=== PATIENT | male | born 1950 | race Caucasian/White ===

== ENCOUNTER 2016-10-01 13:18 | Observation (INO) | payer OTHER ==
[2016-10-01 13:27] VITALS: BMI 28.1
[2016-10-01] MEDS ORDERED: ASPIRIN 81 MG CHEWABLE TABLETS PO ONE (13:45)
--- NOTE | 2016-10-01 13:45 | PDOC ---
[id number] Filed: 10/01/16 16:25> <Chau Swan - Last Filed: 10/04/16 19:40> - General Chief Complaint: Chest Pain Stated Complaint: CHEST PAIN Time Seen by Provider: 10/01/16 13:34 - History of Present Illness Initial Comments: 10/01/16 14:36 The patient is a 66 year old male with a past medical history of CAD s/p 5 cardiac stents( last in 2011), HTN, HLD, presents to the emergency department with a complaint of chest pain this morning. Patient was a rest when he spontaneously felt <min of of sharp left sided chest pain. Patient has had chest pains in the past and states the pain was similar however this pain was more severe than previous episodes. Last episode was " a while ago". The pain was non radiating, associated shortness of breath and diaphoresis. Patient's pain resolved on its own and has not had any recurrence of pain since. Denies decrease in exercise tolerance, denies shortness of breath on exertion. Deneis palpitations, lightheadedness. Denies nausea, vomiting. Denies vision changes. Denies numbness tingling in his extremities. Patient reports a negative stress test 4 months ago. Last time the patient saw his rouge presser was 2 months ago for routine check up and reports being well. Pt does endorse having a similar chest pain in the past for a stent Sales Record Clerk: Dr. Jacquie castellanos [phone]+ (Bunny Bang) Past History <Bunny Bang - Last Filed: 10/01/16 16:25> - Past Medical History Cardiac Disorders: Yes (CAD; "faulty valve") HTN: Yes Hypercholesterolemia: Yes - Surgical History Cardiac Surgery: Yes (x5 (', , , january, february)) - Immunization History Td Vaccination: Yes Immunization Up to Date: Yes - Psycho/Social/Smoking Cessation Hx Anxiety: No Suicidal Ideation: No Smoking Status: No Smoking History: Never smoked Years of Tobacco Use: 0 Have you smoked in the past 12 months: No Number of Cigarettes Smoked Daily: 0 Cigars Per Day: 0 Hx Alcohol Use: No Drug/Substance Use Hx: No Substance Use Type: None Hx Substance Use Treatment: No <Chau Swan - Last Filed: 10/04/16 19:40> - Past Medical History Allergies/Adverse Reactions: Allergies Allergy/AdvReac Type Severity Reaction Status Date / Time No Known Allergies Allergy Verified 10/01/16 13:23 Home Medications: Ambulatory Orders Atorvastatin Ca [Lipitor] 80 mg PO HS 06/10/12 Clopidogrel Bisulfate [Plavix -] 75 mg PO DAILY 06/10/12 Aspirin [ASA -] 81 mg PO DAILY 07/08/14 Metoprolol Succinate [Toprol Xl] 0 mg PO DAILY 10/01/16 Review of Systems - Review of Systems Able to Perform ROS?: Yes <Bunny Bang - Last Filed: 10/01/16 16:25> <Chau Swan - Last Filed: 10/04/16 19:40> - Review of Systems Comments:: 10/01/16 14:37 CONSTITUTIONAL: Reports: Diaphoresis, No reported: Fever, Chills, Generalized Weakness, Malaise, Loss of Appetite HEENT: No reported: Rhinorrhea, Nasal Congestion, Throat Pain, Throat Swelling, Difficulty Swallowing, Mouth Swelling, Ear Pain, Eye Pain, Visual Changes CARDIOVASCULAR: Reprots: Chest Pain, No reported: Syncope, Irregular Heart Rate, Peripheral Edema, Palpitations, Lightheadedness, RESPIRATORY: Reports: Shortness of breath No reported: Cough, SOB with Exertion, Orthopnea, Wheezing, Stridor, Hemoptysis GASTROINTESTINAL: No reported: Abdominal pain, Abdominal Distension, Nausea, Vomiting, Diarrhea, Constipation, Melena, Hematochezia GENITOURINARY: No reported: Dysuria, Frequency, Urgency, Hesitancy, Flank Pain, Genital Pain MUSCULOSKELETAL: No reported: Myalgia, Arthralgia, Joint Swelling, Back pain, Neck Pain SKIN: No reported: Rash, Itching, Pallor HEMEATOLOGIC/IMMUNOLOGIC: No reported: Easy Bleeding, Easy Bruising, Lymphadenopathy, Frequent infections ENDOCRINE: No reported: Unexplained Weight Gain, Unexplained Weight Loss, Heat Intolerance , Cold Intolerance NEUROLOGIC: No reported: Headache, Focal Weakness, Paresthesias, Vertigo, Lightheadedness, Unsteady Gait, Seizure, Mental Status Changes, Incontinence PSYCHIATRIC: No reported: Anxiety, Depression (Bunny Bang) *Physical Exam <Bunny Bang - Last Filed: 10/01/16 16:25> <Sosa,Chau - Last Filed: 10/04/16 19:40> - Vital Signs Last Vital Signs Temp Pulse Resp BP Pulse Ox 97.6 F 73 20 118/70 95 10/02/16 13:25 10/02/16 13:25 10/02/16 13:25 10/02/16 13:25 10/02/16 07:55 - Physical Exam Comments: 10/01/16 14:37 GENERAL: The patient is awake, alert, and fully oriented, Nontoxic - in no acute distress. HEAD: Normocephalic, atraumatic. EYES: extraocular movements intact, sclera anicteric, conjunctiva clear. ENT: Normal voice, Moist mucous membranes. NECK: Normal range of motion, supple LUNGS: Breath sounds equal, clear to auscultation bilaterally. No wheezes, no rhonchi, no rales. HEART: Regular rate and rhythm, without murmur, rub or gallop. ABDOMEN: Soft, nontender, normoactive bowel sounds. No guarding, no rebound.No CVA tenderness EXTREMITIES: Normal range of motion, no edema. No clubbing or cyanosis. No cords , erythema, or tenderness. NEUROLOGICAL: No facial assymetry, Normal speech, PSYCH: Normal mood, normal affect. SKIN: Warm, Dry, normal turgor, (Bunny Bang) Heart Score/ECG Review - History History: Slightly suspicious - Electrocardiogram EKG: Normal - Age Age: >/= 65 - Risk Factors Risk Factors Heart Score: Yes Hx Hypercholesterolemia, Yes Hx Hypertension, Yes Hx Obesity Based on the list above the patient has:: >/=3 risk factors or Hx atherosclerotic disease - Troponin Troponin: </= normal limit - Score Heart Score - Total: 4 <Sosa,Chau - Last Filed: 10/04/16 19:40> ED Treatment Course - LABORATORY CBC & Chemistry Diagram: 10/01/16 13:47 10/01/16 13:47 <Bunny Bang - Last Filed: 10/01/16 16:25> - LABORATORY CBC & Chemistry Diagram: 10/02/16 05:35 10/02/16 05:35 <Sosa,Chau - Last Filed: 10/04/16 19:40> - ADDITIONAL ORDERS Additional order review: 10/01/16 13:47 RBC 4.29 MCV 95.2 MCHC 33.6 RDW 12.1 MPV 7.9 Neutrophils % 63.0 Lymphocytes % 21.0 Monocytes % 7.9 Eosinophils % 7.1 H Basophils % 1.0 (Bunny Bang) - RADIOLOGY Radiology Studies Ordered: Category Date Time Status CHEST PA & LAT [RAD] Stat Radiology 10/01/16 13:45 Completed 10/01/16 14:37 CHEST X RAY Impression: No active pulmonary disease Reported by Calvin Correia (Bunny Bang) - Medications Given in the ED: ED Medications Discontinued Medications Generic Name Dose Route Start Last Admin Trade Name Freq PRN Reason Stop Dose Admin Aspirin 162 mg 10/01/16 13:45 10/01/16 13:57 Asa - PO 10/01/16 13:46 162 mg ONCE ONE Administration Aspirin 81 mg 10/02/16 10:00 10/02/16 09:12 Asa - PO 81 mg DAILY JAIMIE Administration Atorvastatin Calcium 80 mg 10/01/16 22:00 10/01/16 22:16 Lipitor - PO 80 mg HS JAIMIE Administration Clopidogrel Bisulfate 75 mg 10/02/16 10:00 10/02/16 09:07 Plavix - PO 75 mg DAILY JAIMIE Administration Docusate Sodium 100 mg 10/01/16 22:00 10/02/16 09:07 Colace - PO 100 mg BID JAIMIE Administration Metoprolol Succinate 25 mg 10/02/16 10:00 10/02/16 09:07 Toprol Xl - PO 25 mg DAILY JAIMIE Administration Medical Decision Making <Bunny Bang - Last Filed: 10/01/16 16:25> <Chau Swan - Last Filed: 10/04/16 19:40> - Medical Decision Making 10/01/16 15:01 66y M hx of htn, hl, obesity, CAD s/p 5 stents presents with chest pain - pt state it was a sharp chest pain lasting for a brief time associated with sob, diaphoresis when he was at rest and then resolved w/o n/v, numbne/stingling/ weakness. pt endorses feeling similar pain in the past when he had a stent - ekg unremarkable, trop neg x 1 pts HAART score +4 will observe for further risk stratefication A portion of this note was documented by scribe services under my direction. I have reviewed the details of the note, within reason, and agree with the documentation with the following case summary and management plan written by me 10/01/16 16:01 case dw Karen from hospitalist [facility] with tele observation will admit under dr. Tesfaye service. Case discussed in detail with admitting physician including history, physical exam and ancillary studies. Admitting physician has assumed care for the patient, will follow all pending diagnostics and will complete the evaluation and treatment. (Chau Swan) *DC/Admit/Observation/Transfer <Bunny Bang - Last Filed: 10/01/16 16:25> - Discharge Dispostion Admit: Yes <Chau Swan - Last Filed: 10/04/16 19:40> Diagnosis at time of Disposition: Chest pain Qualifiers: Chest pain type: unspecified Qualified Code(s): R07.9 - Chest pain, unspecified - Discharge Dispostion Disposition: HOME Condition at time of disposition: Stable - Attestations Scribe Attestion: 10/01/16 14:37 Documentation prepared by Bunny Bang, acting as medical practice administrator for Chau Swan MD (Bunny Bang)
[2016-10-01] MEDS ORDERED: ASPIRIN 81 MG CHEWABLE TABLETS ONE (13:53)
[2016-10-01 14:07] LABS: EOSINOPHIL 7.1 % (0-4.5); MCHC 33.6 g/dl (32.0-35.9); MEAN CELL VOLUME 95.2 fl (80-96); MEAN PLT VOLUME 7.9 fl (7.5-11.1); PLATELET COUNT 300 K/MM3 (134-434); RDW 12.1 % (11.9-15.9); WHITE BLOOD COUNT 8.8 K/mm3 (4.0-10.0)
[2016-10-01 14:23] LABS: INR 1.17 (0.82-1.09); PROTHROMBIN TIME (PATIENT) 12.9 SEC (9.98-11.88)
--- NOTE | 2016-10-01 14:34 | EKG ---
Test Reason : Blood Pressure : / mmHG Vent. Rate : 065 BPM Atrial Rate : 065 BPM P-R Int : 176 ms QRS Dur : 084 ms QT Int : 414 ms P-R-T Axes : 038 002 033 degrees QTc Int : 430 ms NORMAL SINUS RHYTHM NORMAL ECG WHEN COMPARED WITH ECG OF 17-AUG-2015 01:24, NO SIGNIFICANT CHANGE WAS FOUND Confirmed by JUAN BERNABE MD ([id number]) on 10/01/2016 2:33:51 PM Referred By: NM Confirmed By:JUAN BERNABE MD
[2016-10-01 14:42] LABS: ANION GAP 9 (8-16); BILIRUBIN,TOTAL 0.9 mg/dL (0.2-1.0); CALCIUM 9.5 mg/dL (8.5-10.1); CO2 29 mmol/L (21-32); CREATININE 0.9 mg/dL (0.7-1.3); GLUCOSE,RANDOM 84 mg/dL (74-106); SGOT/AST 23 U/L (15-37); SGPT/ALT 30 U/L (12-78); TOT PROT 7.4 g/dl (6.4-8.2)
[2016-10-01 14:44] LABS: ALK PHOS 88 U/L (45-117); TROPONIN I < 0.02 ng/ml (0.00-0.05)
[2016-10-01] MEDS ORDERED: ACETAMINOPHEN 325 MG TABLET (FP) PO PRN (15:48)
[2016-10-01] MEDS ORDERED: ONDANSETRON 4 MG/2 ML VIAL IVPB PRN (15:48)
--- NOTE | 2016-10-01 16:34 | HP ---
CHIEF COMPLAINT: Chest Pain PCP: Dr. Baker ([facility] out of [facility]; [phone]) HISTORY OF PRESENT ILLNESS: Mr. Lerner is a 66 y/o male with a PMH significant for CAD with stenting (5x, last in 2011), HTN, dyslipidemia, who presented to the ED today after experiencing left sided chest pain. The pt. states that the pain started while he was standing in the kitchen this morning. The pain was sharp like someone was stabbing him. The pain did not radiate and it dissipated after several seconds. He states that this pain was not like his typical chest pain as it was located more laterally vs. his usual substernal chest pain. He also states that he felt short of breath with this episode and that the chest pain worsened with deep breaths. Denies leg pain, family history of hypercoaguability, or prior DVT in the past. He presented to the ED after the episode passed. Denies palpitations, weakness, dizziness, N/V/D. ER course was notable for: (1) Negative 1st troponin (2) EKG: Sinus arrhythmia with a normal rate; No ischemic changes (3) No new events of chest pain Recent Travel: Denies PAST MEDICAL HISTORY: Hypertension Dyslipidemia CAD with stenting PAST SURGICAL HISTORY: None Social History: Smoking: Never Alcohol: Socially (1-2 drinks per week) Drugs: Never Family History: Allergies No Known Allergies Allergy (Verified 10/01/16 13:23) HOME MEDICATIONS: Home Medications Medication Instructions Recorded Atorvastatin Ca [Lipitor] 80 mg PO HS 06/10/12 Clopidogrel Bisulfate [Plavix] 75 mg PO DAILY 06/10/12 Aspirin [ASA -] 81 mg PO DAILY 07/08/14 REVIEW OF SYSTEMS CONSTITUTIONAL: Absent: fever, chills, diaphoresis, generalized weakness, malaise, loss of appetite, weight change HEENT: Absent: rhinorrhea, nasal congestion, throat pain, throat swelling, difficulty swallowing, mouth swelling, ear pain, eye pain, visual changes CARDIOVASCULAR: Present: Chest pain Absent: syncope, palpitations, irregular heart rate, lightheadedness, peripheral edema RESPIRATORY: Present: Shortness of breath Absent: cough, dyspnea with exertion, orthopnea, wheezing, stridor, hemoptysis GASTROINTESTINAL: Absent: abdominal pain, abdominal distension, nausea, vomiting, diarrhea, constipation, melena, hematochezia GENITOURINARY: Absent: dysuria, frequency, urgency, hesitancy, hematuria, flank pain, genital pain MUSCULOSKELETAL: Absent: myalgia, arthralgia, joint swelling, back pain, neck pain SKIN: Absent: rash, itching, pallor HEMATOLOGIC/IMMUNOLOGIC: Absent: easy bleeding, easy bruising, lymphadenopathy, frequent infections ENDOCRINE: Absent: unexplained weight gain, unexplained weight loss, heat intolerance, cold intolerance NEUROLOGIC: Absent: headache, focal weakness or paresthesias, dizziness, unsteady gait, seizure, mental status changes, bladder or bowel incontinence PSYCHIATRIC: Absent: anxiety, depression, suicidal or homicidal ideation, hallucinations. PHYSICAL EXAMINATION Vital Signs - 24 hr 10/01/16 10/01/16 10/01/16 13:23 13:36 16:00 Temperature 97.9 F 98 F Pulse Rate 66 66 Pulse Rate [ 66 Left Radial] Respiratory 19 18 Rate Blood Pressure 126/86 Blood Pressure 124/77 [Left Arm] O2 Sat by Pulse 99 99 98 Oximetry (%) 10/01/16 16:04 Temperature 98.3 F Pulse Rate Pulse Rate [ 61 Left Radial] Respiratory 20 Rate Blood Pressure Blood Pressure 130/70 [Left Arm] O2 Sat by Pulse 98 Oximetry (%) GENERAL: Awake, alert, and fully oriented to person, place, and time, in no acute distress laying in bed, not using accessory muscles to breathe. HEAD: Normal with no signs of trauma. EYES: Pupils equal, round and reactive to light, extraocular movements intact, sclera anicteric, conjunctiva clear. No lid lag. EARS, NOSE, THROAT: Ears normal, nares patent, oropharynx clear without exudates. Moist mucous membranes. NECK: Normal range of motion, supple without lymphadenopathy, JVD, or masses. LUNGS: Breath sounds equal, clear to auscultation bilaterally. No wheezes, and no crackles. No accessory muscle use. HEART: Regular rate and rhythm, normal S1 and S2 without murmur, rub or gallop. ABDOMEN: Soft, nontender, not distended, normoactive bowel sounds, no guarding, no rebound, no masses. No hepatomegaly or splenomegaly. MUSCULOSKELETAL: Normal range of motion at all joints. No bony deformities or tenderness. No CVA tenderness. UPPER EXTREMITIES: 2+ pulses, warm, well-perfused. No cyanosis. No clubbing. Cap refill <2 seconds. No peripheral edema. LOWER EXTREMITIES: 2+ pulses, warm, well-perfused. No calf tenderness. No peripheral edema. NEUROLOGICAL: Cranial nerves II-XII intact. Normal speech. Normal gait. PSYCHIATRIC: Cooperative. Good eye contact. Appropriate mood and affect. SKIN: Warm, dry, normal turgor, no rashes or lesions noted. Laboratory Results - last 24 hr 10/01/16 10/01/16 10/01/16 13:47 13:47 13:47 WBC 8.8 RBC 4.29 Hgb 13.7 Hct 40.8 MCV 95.2 MCHC 33.6 RDW 12.1 Plt Count 300 MPV 7.9 Neutrophils % 63.0 Lymphocytes % 21.0 Monocytes % 7.9 Eosinophils % 7.1 H Basophils % 1.0 INR 1.17 H Sodium 142 Potassium 4.5 Chloride 104 Carbon Dioxide 29 Anion Gap 9 BUN 13 Creatinine 0.9 Creat Clearance w eGFR > 60 Random Glucose 84 Calcium 9.5 Magnesium 2.0 Total Bilirubin 0.9 D AST 23 D ALT 30 D Alkaline Phosphatase 88 Creatine Kinase 121 Troponin I < 0.02 Total Protein 7.4 Albumin 4.0 ASSESSMENT/PLAN: Problem List - Problem (1) Chest pain Assessment/Plan: Given that the pt. reports this chest pain is different than his past episodes and a HEART score of 4, will place in observation to monitor for events over night. Pt. states that he had a stress echo done in the past 6 months and was normal at that time. 1. First troponin negative; will order serial troponins. 2. Routine basic labs to monitor electrolytes 3. Will reach out to pt. precision lens centerer and edger Dr. Baker (left message 10/01/16 16:00) to obtain old records; depending on last stress test date will consider having another test done. 4. Continuous cardiac monitoring 5. Place in observation Code(s): R07.9 - CHEST PAIN, UNSPECIFIED Qualifiers: Chest pain type: unspecified Qualified Code(s): R07.9 - Chest pain, unspecified (2) HTN (hypertension) Assessment/Plan: Slightly above goal blood pressure; monitor Continue metoprolol; pt. reports not knowing his home dose. Will give 25mg daily Code(s): I10 - ESSENTIAL (PRIMARY) HYPERTENSION (3) Dyslipidemia Assessment/Plan: Continue atorvastatin Will draw lipid panel Low fat/sodium diet Code(s): E78.5 - HYPERLIPIDEMIA, UNSPECIFIED (4) DVT prophylaxis Assessment/Plan: OOB and walking. Low risk for DVT as pt is in obs. Code(s): UTR9222 - Visit type - Emergency Visit Emergency Visit: Yes Care time: The patient presented to the Emergency Department on the above date and was hospitalized for further evaluation of their emergent condition. - New Patient This patient is new to me today: Yes Date on this admission: 10/01/16 - Critical Care Critical Care patient: No
[2016-10-01 21:33] LABS: TROPONIN I < 0.02 ng/ml (0.00-0.05)
[2016-10-01] MEDS ORDERED: ATORVASTATIN CA 80 MG TABLET (FP) PO SCH (22:00)
[2016-10-01] MEDS: DOCUSATE SODIUM 100 MG CAPSULE (FP) PO SCH (22:16)
[2016-10-02 07:01] LABS: BASOPHIL 0.5 % (0-2.0); EOSINOPHIL 6.2 % (0-4.5); MCH 32.1 pg (25.7-33.7); MEAN CELL VOLUME 94.4 fl (80-96); NEUTROPHILS 49.9 % (42.8-82.8); PLATELET COUNT 267 K/MM3 (134-434); RDW 12.1 % (11.9-15.9); WHITE BLOOD COUNT 6.8 K/mm3 (4.0-10.0)
[2016-10-02 07:34] LABS: ALBUMIN 3.5 g/dl (3.4-5.0); ALK PHOS 81 U/L (45-117); ANION GAP 9 (8-16); BILIRUBIN,TOTAL 0.9 mg/dL (0.2-1.0); CALCIUM 9.3 mg/dL (8.5-10.1); CHOLESTEROL 127 mg/dL (50-200); CO2 27 mmol/L (21-32); CREATININE 0.9 mg/dL (0.7-1.3); GLUCOSE,RANDOM 83 mg/dL (74-106); LDL CHOLESTEROL (ONLY SJRH) 83 mg/dL (5-100); SGOT/AST 19 U/L (15-37); SGPT/ALT 23 U/L (12-78); TOT PROT 6.5 g/dl (6.4-8.2); TROPONIN I < 0.02 ng/ml (0.00-0.05)
[2016-10-02] MEDS: DOCUSATE SODIUM 100 MG CAPSULE (FP) PO SCH (09:07)
[2016-10-02] MEDS ORDERED: ASPIRIN 81 MG CHEWABLE TABLETS PO SCH (10:00)
[2016-10-02] MEDS ORDERED: CLOPIDOGREL BISULFATE 75 MG TABLET (FP) PO SCH (10:00)
[2016-10-02] MEDS ORDERED: METOPROLOL SUCCINATE 25 MG TAB.SR.24H (FP) PO SCH (10:00)
[2016-10-02 13:27] VITALS: BP 118/70; PULSE 73; TEMP 97.6
--- NOTE | 2016-10-02 14:10 | DS ---
Physical Exam: SUBJECTIVE: Patient seen and examined at bedside. No longer has chest pain or palpitations. Feels back to baseline, eating well, no N/V/F/C, SOB, abd pain, light headedness, dizziness. OBJECTIVE: Vital Signs Temperature 97.6 F 10/02/16 13:25 Pulse Rate 73 10/02/16 13:25 Respiratory Rate 20 10/02/16 13:25 Blood Pressure 118/70 10/02/16 13:25 O2 Sat by Pulse Oximetry (%) 95 10/02/16 07:55 PHYSICAL EXAM GENERAL: The patient is awake, alert, and fully oriented, in no acute distress. HEAD: Normal with no signs of trauma. EYES: extraocular movements intact, sclera anicteric, conjunctiva clear. ENT: Ears normal, nares patent, moist mucous membranes. NECK: Trachea midline, full range of motion, supple. LUNGS: Breath sounds equal, clear to auscultation bilaterally, no wheezes, no crackles, no accessory muscle use. HEART: Regular rate and rhythm, S1, S2 without murmur, rub or gallop. ABDOMEN: Soft, nontender, nondistended, normoactive bowel sounds, no guarding, no rebound, no hepatosplenomegaly, no masses. EXTREMITIES: 2+ pulses, warm, well-perfused, no edema. NEUROLOGICAL: Cranial nerves II through XII grossly intact. Normal speech, gait not observed. PSYCH: Normal mood, normal affect. SKIN: Warm, dry, normal turgor, no rashes or lesions noted. LABS Laboratory Results - last 24 hr 10/01/16 10/02/16 10/02/16 20:45 05:35 05:35 WBC 6.8 RBC 3.99 L Hgb 12.8 Hct 37.6 MCV 94.4 MCHC 34.0 RDW 12.1 Plt Count 267 MPV 8.0 Neutrophils % 49.9 D Lymphocytes % 34.8 D Monocytes % 8.6 Eosinophils % 6.2 H Basophils % 0.5 Sodium 142 Potassium 3.8 Chloride 106 Carbon Dioxide 27 Anion Gap 9 BUN 13 Creatinine 0.9 Creat Clearance w eGFR > 60 Random Glucose 83 Calcium 9.3 Magnesium 2.0 Total Bilirubin 0.9 AST 19 ALT 23 D Alkaline Phosphatase 81 Creatine Kinase 91 80 Troponin I < 0.02 < 0.02 Total Protein 6.5 Albumin 3.5 Triglycerides 72 Cholesterol 127 Total LDL Cholesterol 83 HDL Cholesterol 44 HOSPITAL COURSE: Date of Admission:10/01/16 Date of Discharge: 10/02/16 66 y/o M w/sig PMH of CAD (s/p 5 stents, last in 2011), HTN, HLD, presented to ER w/ L sided chest pain that woke him up from sleep. Pain was sharp, with no radiation, and lasted only seconds, and associated with diaphoresis. He denied any pain with positional changes. Pt denied any light-headedness, dizziness, LOC. Pt was found to have NSR on EKG, Trops neg x3, CK within normal limits x3, and no other significant lab abnormalities were found. Pt stated he felt better the next day and felt back at baseline. He also informed us that he had a stress test done approximately 6 months ago that with no abnormalities noted as far as he could remember. He was told to f/u with his machine packer in 1 week and PCP in 1 week. I called his machine packer Dr. Baker [phone] (there was no answer) and I left a message informing Dr. Baker about pt and left my cell phone number in case Dr. Baker wanted to speak with me. Minutes to complete discharge: 36 <Reza Farrell - Last Filed: 10/02/16 14:44> Physical Exam: ATTENDING PHYSICIAN STATEMENT I saw and evaluated the patient. I reviewed the resident's note and discussed the case with the resident. I agree with the resident's findings and plan as documented. SUBJECTIVE: seen and evaluated at the bedside OBJECTIVE: resting comfortably in bed ASSESSMENT AND PLAN: 66 y/o male with a PMH significant for CAD with stenting (5x, last in 2011), HTN , dyslipidemia, who presented to the ED today after experiencing left sided chest pain -pt was ruled out for ACS with 3 negative troponins, and no ischemic changes on EKG -is now completely asymptomatic -for discharge today and instructed to follow up with his private machine packer <Hari Love - Last Filed: 10/03/16 08:45> Discharge Summary Reason For Visit: CHEST PAIN Current Active Problems Chest pain (Acute) DVT prophylaxis (Acute) Dyslipidemia (Chronic) HTN (hypertension) (Chronic) - Home Medications Comprehensive Discharge Medication List: Ambulatory Orders Atorvastatin Ca [Lipitor] 80 mg PO HS 06/10/12 Clopidogrel Bisulfate [Plavix -] 75 mg PO DAILY 06/10/12 Aspirin [ASA -] 81 mg PO DAILY 07/08/14 Metoprolol Succinate [Toprol Xl] 0 mg PO DAILY 10/01/16 <Reza Farrell - Last Filed: 10/02/16 14:44> Current Active Problems Chest pain (Acute) DVT prophylaxis (Acute) Dyslipidemia (Chronic) HTN (hypertension) (Chronic) - Home Medications Comprehensive Discharge Medication List: Ambulatory Orders Atorvastatin Ca [Lipitor] 80 mg PO HS 06/10/12 Clopidogrel Bisulfate [Plavix -] 75 mg PO DAILY 06/10/12 Aspirin [ASA -] 81 mg PO DAILY 07/08/14 Metoprolol Succinate [Toprol Xl] 0 mg PO DAILY 10/01/16 <Hari Love - Last Filed: 10/03/16 08:45> Condition: Stable - Instructions Diet, Activity, Other Instructions: You will need to see your machine packer, Dr. Baker, in approximately 1-2 weeks and your primary care physician in 1-2 weeks as well. There have been no changes to your medications. Your blood tests (including troponins) and EKG here did not show any abnormalities. Continue with your medications as they were prescribed before coming to the hospital. Disposition: HOME Problem List - Problems (1) Chest pain Code(s): R07.9 - CHEST PAIN, UNSPECIFIED Qualifiers: Chest pain type: unspecified Qualified Code(s): R07.9 - Chest pain, unspecified (2) Dyslipidemia Code(s): E78.5 - HYPERLIPIDEMIA, UNSPECIFIED (3) HTN (hypertension) Code(s): I10 - ESSENTIAL (PRIMARY) HYPERTENSION <Reza Farrell - Last Filed: 10/02/16 14:44> This patient is new to me today: Yes Date on this admission: 10/02/16 Emergency Visit: Yes ED Registration Date: 10/01/16 Care time: The patient presented to the Emergency Department on the above date and was hospitalized for further evaluation of their emergent condition. Critical Care patient: No - Discharge Referral Referred to [facility] No <Reza Farrell - Last Filed: 10/02/16 14:44>
== END 2016-10-02 17:39 | disposition home or self-care (01) ==
LOC: JER 13:18 → JERBED 15:25 → J4W 20:09
PROVIDERS: ADMIT Internal Medicine; ATTEND Internal Medicine
DX: I25.10 Atherosclerotic heart disease of native coronary artery without angina pectoris (principal); Z98.61 Coronary angioplasty status; I10 Essential (primary) hypertension; E78.5 Hyperlipidemia, unspecified; R07.9 Chest pain, unspecified
CPT/HCPCS: 36415; 71020-TC; 80053; 80061; 82550; 83721; 83735; 84484; 85025; 85610; 93005; 93010; 99285-25; G0378

== ENCOUNTER 2020-08-31 11:58 | Inpatient (IN) | payer OTHER ==
[2020-08-31 12:12] VITALS: BMI 23.5
[2020-08-31 13:33] LABS: EOS % 1.6 % (0-4.5); HEMATOCRIT 40.7 % (35.4-49); HEMOGLOBIN 13.7 GM/dL (11.7-16.9); MCH 31.7 pg (25.7-33.7); MCHC 33.7 g/dl (32.0-35.9); MEAN CELL VOLUME 94.1 fl (80-96); MEAN PLT VOLUME 9.4 fl (7.5-11.1); MONO % 7.5 % (3.8-10.2); NEUT % 61.9 % (42.8-82.8); PLATELET COUNT 248 K/MM3 (134-434); RBC 4.32 M/mm3 (4.00-5.60); RDW 12.6 % (11.9-15.9); WHITE BLOOD COUNT 7.6 K/mm3 (4.0-10.0)
[2020-08-31 13:46] LABS: INR 1.04 (0.83-1.09); PROTHROMBIN TIME (PATIENT) 12.8 SEC (9.7-13.0)
[2020-08-31 13:49] LABS: ACTIVATED PTT 31.7 SECONDS (25.2-36.5)
[2020-08-31 13:59] LABS: POTASSIUM 3.5 mmol/L (3.5-5.1)
[2020-08-31 14:01] LABS: ALBUMIN 4.1 g/dl (3.4-5.0); BLOOD UREA NITROGEN 16.6 mg/dL (7-18); CALCIUM 9.5 mg/dL (8.5-10.1); MAGNESIUM 1.7 mg/dL (1.8-2.4)
[2020-08-31] MEDS ORDERED: MAGNESIUM SULF 50% (8.12 MEQ/2 ML-1 GM VIAL) IVPB ONE (14:12)
[2020-08-31] MEDS ORDERED: SODIUM CHLORIDE 1,000 ML IV STA (14:14)
[2020-08-31] MEDS ORDERED: MAGNESIUM SULFATE IN WATER 2 GM/50 ML IVPB IVPB ONE (14:16)
[2020-08-31] MEDS ORDERED: SODIUM CHLORIDE 0.9% 500 ML INFUS.BAG IV ONE (15:04)
[2020-08-31 16:48] LABS: PH,URINE 6.5 (5.0-8.0); URINE APPEARANCE CLEAR; URINE BILIRUBIN NEGATIVE (NEGATIVE); URINE COLOR YELLOW; URINE GLUCOSE (UA) NEGATIVE (NEGATIVE); URINE KETONE NEGATIVE (NEGATIVE); URINE LEUK ESTERASE NEGATIVE (NEGATIVE); URINE NITRITE NEGATIVE (NEGATIVE); URINE PROTEIN NEGATIVE (NEGATIVE)
[2020-08-31] MEDS ORDERED: ACETAMINOPHEN 325 MG TABLET (FP) PO PRN (17:49)
[2020-08-31] MEDS ORDERED: SODIUM CHLORIDE 1,000 ML IV SCH (18:00)
[2020-08-31] MEDS ORDERED: HEPARIN NA (PORCINE) 5,000 UNITS/ML 1ML VIAL ONE (21:56)
[2020-08-31] MEDS: HEPARIN NA (PORCINE) 5,000 UNITS/ML 1ML VIAL SQ SCH (22:01)
[2020-09-01] MEDS: HEPARIN NA (PORCINE) 5,000 UNITS/ML 1ML VIAL SQ SCH ×3 (05:51→22:28)
[2020-09-01] MEDS ORDERED: CLOPIDOGREL BISULFATE 75 MG TABLET (FP) PO SCH (10:00)
[2020-09-01 10:17] LABS: BASO % 0.6 % (0-2.0); EOS % 2.2 % (0-4.5); HEMATOCRIT 34.6 % (35.4-49); LYMPH % 27.3 % (8-40); MCHC 34.7 g/dl (32.0-35.9); MEAN CELL VOLUME 92.2 fl (80-96); MEAN PLT VOLUME 8.5 fl (7.5-11.1); MONO % 7.5 % (3.8-10.2); NEUT % 62.4 % (42.8-82.8); PLATELET COUNT 222 K/MM3 (134-434); RBC 3.75 M/mm3 (4.00-5.60); RDW 12.9 % (11.9-15.9); WHITE BLOOD COUNT 6.3 K/mm3 (4.0-10.0)
[2020-09-01 10:26] LABS: POTASSIUM 3.5 mmol/L (3.5-5.1)
[2020-09-01 10:28] LABS: CALCIUM 8.5 mg/dL (8.5-10.1)
[2020-09-01 10:29] LABS: ALBUMIN 3.3 g/dl (3.4-5.0); BLOOD UREA NITROGEN 9.9 mg/dL (7-18)
[2020-09-01 10:32] LABS: CREATININE 0.7 mg/dL (0.55-1.3)
[2020-09-01 10:33] LABS: TOT PROT 5.7 g/dl (6.4-8.2)
[2020-09-01] MEDS: ASPIRIN 81 MG CHEWABLE TABLETS PO SCH (10:52)
[2020-09-01 11:29] LABS: ERYTHROCYTE SEDIMENTATION RATE 2 mm/hr (0-20)
[2020-09-01] MEDS: amLODIPine BESYLATE 2.5 MG TABLET (FP) PO SCH (17:29)
[2020-09-01] MEDS ORDERED: DONEPEZIL HCL 10 MG TABLET (FP) PO SCH (22:00)
[2020-09-01] MEDS ORDERED: PATIENT'S OWN MEDICATION (NON-FORMULARY) (Metoprolol Tartrate [Lopressor] 100 MG Tablet) PO SCH (22:00)
[2020-09-01] MEDS: METOPROLOL TARTRATE 50 MG TABLET (FP) PO SCH (22:29)
[2020-09-02] MEDS ORDERED: ATORVASTATIN CA 80 MG TABLET (FP) PO SCH (01:30)
[2020-09-02] MEDS: HEPARIN NA (PORCINE) 5,000 UNITS/ML 1ML VIAL SQ SCH (05:16)
[2020-09-02 08:48] LABS: BASO % 0.6 % (0-2.0); EOS % 2.1 % (0-4.5); HEMATOCRIT 36.3 % (35.4-49); HEMOGLOBIN 12.6 GM/dL (11.7-16.9); LYMPH % 19.8 % (8-40); MCHC 34.8 g/dl (32.0-35.9); MEAN PLT VOLUME 8.6 fl (7.5-11.1); NEUT % 71.5 % (42.8-82.8); PLATELET COUNT 242 K/MM3 (134-434); RBC 3.95 M/mm3 (4.00-5.60); RDW 12.4 % (11.9-15.9); WHITE BLOOD COUNT 7.9 K/mm3 (4.0-10.0)
[2020-09-02 09:04] LABS: POTASSIUM 3.6 mmol/L (3.5-5.1)
[2020-09-02 09:15] LABS: CALCIUM 8.9 mg/dL (8.5-10.1)
[2020-09-02 09:16] LABS: ALBUMIN 3.6 g/dl (3.4-5.0); MAGNESIUM 1.9 mg/dL (1.8-2.4)
[2020-09-02 09:18] LABS: CREATININE 0.8 mg/dL (0.55-1.3)
[2020-09-02 09:19] LABS: PHOSPHOROUS 2.8 mg/dL (2.5-4.9)
[2020-09-02 09:21] LABS: TOT PROT 6.1 g/dl (6.4-8.2)
[2020-09-02] MEDS: ASPIRIN 81 MG CHEWABLE TABLETS PO SCH (09:51)
[2020-09-02] MEDS: amLODIPine BESYLATE 2.5 MG TABLET (FP) PO SCH (09:51)
[2020-09-02] MEDS: METOPROLOL TARTRATE 50 MG TABLET (FP) PO SCH (09:53)
[2020-09-02 09:59] VITALS: BP 131/67; PULSE 72; TEMP 98
[2020-09-02] MEDS ORDERED: LOSARTAN POTASSIUM 50 MG TABLET PO SCH (10:00)
[2020-09-02] MEDS ORDERED: PATIENT'S OWN MEDICATION (NON-FORMULARY) (Omeprazole [Omeprazole] 20 MG Tablet.Dr) PO SCH (10:00)
[2020-09-02] MEDS ORDERED: PANTOPRAZOLE 40 MG TABLET PO SCH (10:00)
[2020-09-02] MEDS ORDERED: ESCITALOPRAM OXALATE 10 MG TABLET PO SCH (10:00)
[2020-09-02] MEDS ORDERED: PATIENT'S OWN MEDICATION (NON-FORMULARY) (Escitalopram Oxalate [Lexapro -] 5 MG Tablet) PO SCH (10:00)
== END 2020-09-02 14:21 | disposition home health service (06) | DRG 425 ==
LOC: JER 11:58 → JERBED 18:39 → J5WEST-2 09-01 03:25
PROVIDERS: ADMIT Internal Medicine
DX: E87.2 Acidosis (principal); I10 Essential (primary) hypertension; E78.5 Hyperlipidemia, unspecified; I25.10 Atherosclerotic heart disease of native coronary artery without angina pectoris; F32.9 Major depressive disorder, single episode, unspecified; G30.9 Alzheimer's disease, unspecified; G93.41 Metabolic encephalopathy; Z95.5 Presence of coronary angioplasty implant and graft
CPT/HCPCS: 36415; 70450-TC; 71045-TC-FY; 80053; 80307; 81003; 82607; 82728; 82962; 83605; 83615; 83735; 84100; 84443; 84484; 85025; 85379; 85610; 85651; 85730; 86140; 86780; 86850; 86900; 86901; 87040; 87086; 87804; 87807; 93005; 93010; 99285-25; C9803; J1644; U0003

== ENCOUNTER 2022-02-16 02:28 | Observation (INO) | payer OTHER ==
[2022-02-16 03:03] VITALS: BMI 28.9
[2022-02-16 03:57] LABS: BASO % 0.5 % (0-2.0); EOS % 3.8 % (0-4.5); HEMATOCRIT 38.4 % (35.4-49); HEMOGLOBIN 12.9 GM/dL (11.7-16.9); LYMPH % 13.7 % (8-40); MCH 31.7 pg (25.7-33.7); MCHC 33.6 g/dl (32.0-35.9); MEAN CELL VOLUME 94.5 fl (80-96); MEAN PLT VOLUME 7.6 fl (7.5-11.1); MONO % 13.9 % (3.8-10.2); NEUT % 68.1 % (42.8-82.8); PLATELET COUNT 227 10^3/uL (134-434); RBC 4.07 M/mm3 (4.00-5.60); RDW 13.1 % (11.9-15.9); WHITE BLOOD COUNT 5.7 K/mm3 (4.0-10.0)
[2022-02-16 04:18] LABS: BLOOD UREA NITROGEN 9.6 mg/dL (7-18); CALCIUM 9.1 mg/dL (8.5-10.1)
[2022-02-16 04:19] LABS: ALBUMIN 3.6 g/dl (3.4-5.0)
[2022-02-16 04:22] LABS: CREATININE 0.9 mg/dL (0.55-1.3)
[2022-02-16 04:23] LABS: BILIRUBIN,TOTAL 0.6 mg/dL (0.2-1); TOT PROT 6.6 g/dl (6.4-8.2)
[2022-02-16 04:27] LABS: N-TERMINAL BNP 231.9 pg/ml (5-125)
[2022-02-16] MEDS ORDERED: ACETAMINOPHEN 325 MG TABLET (FP) PO PRN (14:16)
[2022-02-16] MEDS ORDERED: ASPIRIN 81 MG CHEWABLE TABLETS PO SCH (14:30)
[2022-02-16] MEDS ORDERED: ASPIRIN 81 MG CHEWABLE TABLETS ONE (16:59)
[2022-02-16] MEDS ORDERED: ACETAMINOPHEN 325 MG TABLET (FP) ONE (18:42)
[2022-02-16] MEDS ORDERED: HEPARIN NA (PORCINE) 5,000 UNITS/ML 1ML VIAL ONE (21:05)
[2022-02-16] MEDS ORDERED: MIRTAZAPINE 15 MG TABLET (FP) ONE (21:05)
[2022-02-16] MEDS ORDERED: GABAPENTIN 100 MG CAPSULE ONE (21:05)
[2022-02-16] MEDS ORDERED: DONEPEZIL HCL 5 MG TABLET (FP) ONE (21:05)
[2022-02-16] MEDS ORDERED: ATORVASTATIN CA 80 MG TABLET (FP) ONE (21:05)
[2022-02-16] MEDS ORDERED: ATORVASTATIN CA 80 MG TABLET (FP) PO SCH (22:00)
[2022-02-16] MEDS ORDERED: HEPARIN NA (PORCINE) 5,000 UNITS/ML 1ML VIAL SQ SCH (22:00)
[2022-02-16] MEDS ORDERED: MEMANTINE HCL 10 MG TABLET (FP) PO SCH (22:00)
[2022-02-16] MEDS ORDERED: DONEPEZIL HCL 10 MG TABLET (FP) PO SCH (22:00)
[2022-02-16] MEDS ORDERED: GABAPENTIN 100 MG CAPSULE PO SCH (22:00)
[2022-02-16] MEDS ORDERED: MIRTAZAPINE 15 MG TABLET (FP) PO SCH (22:00)
[2022-02-17] MEDS ORDERED: ESCITALOPRAM OXALATE 10 MG TABLET PO SCH (10:00)
[2022-02-17] MEDS ORDERED: LOSARTAN POTASSIUM 50 MG TABLET PO SCH (10:00)
[2022-02-17 13:49] VITALS: BP 144/81; PULSE 87; TEMP 98.9
== END 2022-02-17 14:26 | disposition home or self-care (01) ==
LOC: JER 02:28 → INTOOBSV 05:06 → JERBED 05:06 → UNDOADMOB 05:06 → JERBED 14:16
PROVIDERS: ADMIT Internal Medicine; ATTEND Internal Medicine
PROC: 3E023GC Introduction of Other Therapeutic Substance into Muscle, Percutaneous Approach (ICD-10-PCS; principal; 2022-02-16)
DX: I25.10 Atherosclerotic heart disease of native coronary artery without angina pectoris (principal); F02.80 Dementia in other diseases classified elsewhere, unspecified severity, without behavioral disturbance, psychotic disturbance, mood disturbance, and anxiety; G30.9 Alzheimer's disease, unspecified; I10 Essential (primary) hypertension; F10.99 Alcohol use, unspecified with unspecified alcohol-induced disorder; F32.9 Major depressive disorder, single episode, unspecified; M62.81 Muscle weakness (generalized); Z95.5 Presence of coronary angioplasty implant and graft; R07.9 Chest pain, unspecified
CPT/HCPCS: 36415; 71045-TC-FY; 80053; 80061; 83036; 83880; 84443; 84484; 85025; 93005; 93010; 99285-25; C9803-CS; G0378; J1644; U0003; U0005

== ENCOUNTER 2022-06-30 10:30 | Observation (INO) | payer OTHER ==
[2022-06-30 10:46] VITALS: BMI 28.2
[2022-06-30] MEDS ORDERED: ASPIRIN 81 MG CHEWABLE TABLETS ONE (11:44)
[2022-06-30] MEDS ORDERED: ASPIRIN 81 MG CHEWABLE TABLETS PO ONE (11:49)
[2022-06-30 11:51] LABS: HEMATOCRIT 40.1 % (35.4-49); HEMOGLOBIN 13.2 GM/dL (11.7-16.9); MCHC 32.9 g/dl (32.0-35.9); MEAN CELL VOLUME 94.2 fl (80-96); MEAN PLT VOLUME 8.7 fl (7.5-11.1); PLATELET COUNT 234 10^3/uL (134-434); RBC 4.25 M/mm3 (4.00-5.60); RDW 12.9 % (11.9-15.9)
[2022-06-30 12:13] LABS: CALCIUM 9.2 mg/dL (8.5-10.1)
[2022-06-30 12:14] LABS: BLOOD UREA NITROGEN 10.5 mg/dL (7-18)
[2022-06-30 12:17] LABS: CREATININE 1.2 mg/dL (0.55-1.3)
[2022-06-30 12:47] LABS: ALBUMIN 3.5 g/dl (3.4-5.0)
[2022-06-30 12:51] LABS: TOT PROT 6.1 g/dl (6.4-8.2)
[2022-06-30 12:52] LABS: BILIRUBIN,TOTAL 0.8 mg/dL (0.2-1)
[2022-06-30] MEDS ORDERED: PATIENT'S OWN MEDICATION (NON-FORMULARY) (Metoprolol Tartrate [Lopressor] 100 MG Tablet) PO SCH (22:00)
[2022-06-30] MEDS ORDERED: MIRTAZAPINE 15 MG TABLET (FP) ONE (23:56)
[2022-06-30] MEDS ORDERED: METOPROLOL TARTRATE 50 MG TABLET (FP) ONE (23:56)
[2022-06-30] MEDS ORDERED: ATORVASTATIN CA 80 MG TABLET (FP) ONE (23:56)
[2022-06-30] MEDS ORDERED: DONEPEZIL HCL 5 MG TABLET (FP) ONE (23:56)
[2022-06-30] MEDS ORDERED: GABAPENTIN 100 MG CAPSULE ONE (23:56)
[2022-06-30] MEDS ORDERED: QUEtiapine FUMARATE 25 MG TABLET ONE (23:56)
[2022-07-01] MEDS: DONEPEZIL HCL 10 MG TABLET (FP) PO SCH ×2 (00:03→22:58)
[2022-07-01] MEDS: ATORVASTATIN CA 80 MG TABLET (FP) PO SCH ×2 (00:03→22:59)
[2022-07-01] MEDS: QUEtiapine FUMARATE 25 MG TABLET PO SCH ×2 (00:03→23:01)
[2022-07-01] MEDS: GABAPENTIN 100 MG CAPSULE PO SCH ×2 (00:03→22:59)
[2022-07-01] MEDS: MIRTAZAPINE 15 MG TABLET (FP) PO SCH ×2 (00:04→23:01)
[2022-07-01] MEDS: METOPROLOL TARTRATE 50 MG TABLET (FP) PO SCH ×3 (00:36→22:59)
[2022-07-01] MEDS: MEMANTINE HCL 10 MG TABLET (FP) PO SCH ×3 (00:36→23:00)
[2022-07-01 09:52] LABS: BASO % 0.7 % (0-2.0); EOS % 3.2 % (0-4.5); HEMATOCRIT 40.9 % (35.4-49); HEMOGLOBIN 13.4 GM/dL (11.7-16.9); LYMPH % 26.6 % (8-40); MCH 31.2 pg (25.7-33.7); MCHC 32.7 g/dl (32.0-35.9); MEAN CELL VOLUME 95.3 fl (80-96); MEAN PLT VOLUME 8.7 fl (7.5-11.1); MONO % 7.6 % (3.8-10.2); NEUT % 61.9 % (42.8-82.8); PLATELET COUNT 230 10^3/uL (134-434); RDW 13.1 % (11.9-15.9); WHITE BLOOD COUNT 6.4 K/mm3 (4.0-10.0)
[2022-07-01] MEDS ORDERED: LOSARTAN POTASSIUM 50 MG TABLET ONE (09:52)
[2022-07-01] MEDS ORDERED: ASPIRIN 81 MG CHEWABLE TABLETS ONE (09:53)
[2022-07-01] MEDS ORDERED: ESCITALOPRAM OXALATE 10 MG TABLET ONE (09:53)
[2022-07-01] MEDS: ESCITALOPRAM OXALATE 10 MG TABLET PO SCH (09:57)
[2022-07-01] MEDS: LOSARTAN POTASSIUM 50 MG TABLET PO SCH (09:57)
[2022-07-01] MEDS: ASPIRIN 81 MG CHEWABLE TABLETS PO SCH (09:57)
[2022-07-01] MEDS ORDERED: PATIENT'S OWN MEDICATION (NON-FORMULARY) (Escitalopram Oxalate [Lexapro -] 5 MG Tablet) PO SCH (10:00)
[2022-07-01 10:29] LABS: BILIRUBIN,TOTAL 1.2 mg/dL (0.2-1); TOT PROT 6.4 g/dl (6.4-8.2)
[2022-07-01 10:32] LABS: CALCIUM 9.2 mg/dL (8.5-10.1)
[2022-07-01 10:33] LABS: ALBUMIN 3.6 g/dl (3.4-5.0); BLOOD UREA NITROGEN 10.4 mg/dL (7-18)
[2022-07-01] MEDS ORDERED: ASPIRIN 81 MG CHEWABLE TABLETS PO ONE (11:32)
[2022-07-01] MEDS ORDERED: ATORVASTATIN CA 80 MG TABLET (FP) ONE (22:57)
[2022-07-01] MEDS ORDERED: METOPROLOL TARTRATE 50 MG TABLET (FP) ONE (22:57)
[2022-07-01] MEDS ORDERED: GABAPENTIN 100 MG CAPSULE ONE (22:57)
[2022-07-01] MEDS ORDERED: MIRTAZAPINE 15 MG TABLET (FP) ONE (23:00)
[2022-07-01] MEDS ORDERED: QUEtiapine FUMARATE 25 MG TABLET ONE (23:00)
[2022-07-01 23:16] VITALS: TEMP 98.1
[2022-07-02] MEDS ORDERED: METOPROLOL TARTRATE 50 MG TABLET (FP) ONE (07:47)
[2022-07-02] MEDS ORDERED: LOSARTAN POTASSIUM 50 MG TABLET ONE (07:47)
[2022-07-02] MEDS ORDERED: REGADENOSON 0.4 MG/5 ML PRE-FILLED SYRINGE IVPUSH ONE ×2 (09:08→09:30)
[2022-07-02] MEDS: METOPROLOL TARTRATE 50 MG TABLET (FP) PO SCH (09:27)
[2022-07-02] MEDS: LOSARTAN POTASSIUM 50 MG TABLET PO SCH (09:28)
[2022-07-02] MEDS ORDERED: ENOXAPARIN NA (PORCINE) 40 MG/0.4 ML DISP.SYRIN SQ SCH (10:00)
[2022-07-02] MEDS ORDERED: ASPIRIN 81 MG CHEWABLE TABLETS ONE (12:48)
[2022-07-02] MEDS ORDERED: ESCITALOPRAM OXALATE 10 MG TABLET ONE (12:48)
[2022-07-02] MEDS: ASPIRIN 81 MG CHEWABLE TABLETS PO SCH (12:49)
[2022-07-02] MEDS: ESCITALOPRAM OXALATE 10 MG TABLET PO SCH (12:49)
[2022-07-02] MEDS: MEMANTINE HCL 10 MG TABLET (FP) PO SCH (12:50)
[2022-07-02 14:29] VITALS: BP 119/70; PULSE 55; RESP 16
== END 2022-07-02 14:48 | disposition home or self-care (01) ==
LOC: JER 10:30 → JERBED 11:50
PROVIDERS: ADMIT Internal Medicine; ATTEND Internal Medicine
PROC: 3E023GC Introduction of Other Therapeutic Substance into Muscle, Percutaneous Approach (ICD-10-PCS; principal; 2022-06-30)
PROC: 3E033GC Introduction of Other Therapeutic Substance into Peripheral Vein, Percutaneous Approach (ICD-10-PCS; 2022-06-30)
DX: I25.10 Atherosclerotic heart disease of native coronary artery without angina pectoris (principal); R07.9 Chest pain, unspecified; I11.9 Hypertensive heart disease without heart failure; E78.5 Hyperlipidemia, unspecified; F32.A Depression, unspecified; F03.90 Unspecified dementia, unspecified severity, without behavioral disturbance, psychotic disturbance, mood disturbance, and anxiety; Z29.8 Encounter for other specified prophylactic measures; Z95.5 Presence of coronary angioplasty implant and graft
CPT/HCPCS: 0241U-QW; 36415; 71045-TC-FY; 78452-TC; 80048; 80053; 80061; 82550; 84484; 85025; 85027; 93005; 93010; 93017; 93306-TC; 96372; 96374; 99285-25; A9502; G0378; J2785